=== PATIENT | male | born 1985 | race Caucasian/White ===

== ENCOUNTER 2018-04-22 12:46 | Emergency (ER) | payer SELFPAY ==
[2018-04-22 13:35] VITALS: BP 128/75
--- NOTE | 2018-04-22 14:35 | ER Document Report ---
ED Extremity Problem, Lower - General Chief Complaint: Ankle Pain Stated Complaint: HURT ANKLE Time Seen by Provider: 04/22/18 14:18 Mode of Arrival: Wheelchair Information source: Patient Notes: 33-year-old male presents to ED for complaint of pain in his right ankle. He states he has a previous fracture with surgery to this ankle and last week he stepped wrong on his ankle reinjuring the ankle. He states he has been trying to go without going to the doctor for this pain the swelling and bruising is better but the pain is still there. He states he needs to get his ankle evaluated. TRAVEL OUTSIDE OF THE [place] IN LAST 30 DAYS: No - HPI Patient complains to provider of: Injury, Pain Location: Ankle - Right Occurred: Last week Where: Outdoors Onset/Duration: Persistent Quality of pain: Sharp, Throbbing Severity: Moderate Pain Level: 3 Context: Twisted - Last week Recent injury: Yes Associated symptoms: Painful ambulation Exacerbated by: Hanging down, Movement, Walking Relieved by: Elevation, Ice, Rest - Related Data Allergies/Adverse Reactions: cephalexin monohydrate [From Keflex] Allergy (Verified 04/22/18 12:48) Past Medical History - General Information source: Patient - Social History Smoking Status: Never Smoker Cigarette use (# per day): No Chew tobacco use (# tins/day): No Smoking Education Provided: No Frequency of alcohol use: None Drug Abuse: None Lives with: Family Family History: None Patient has suicidal ideation: No Patient has homicidal ideation: No - Past Medical History Cardiac Medical History: Reports: None Pulmonary Medical History: Reports: None EENT Medical History: Reports: None Neurological Medical History: Reports: None Endocrine Medical History: Reports: None Renal/ Medical History: Reports: None Malignancy Medical History: Reports None GI Medical History: Reports: None Musculoskeletal Medical History: Reports Hx Musculoskeletal Trauma Skin Medical History: Reports None Psychiatric Medical History: Reports: Hx Anxiety, Hx Bipolar Disorder, Hx Depression Traumatic Medical History: Reports: Hx Fractures - Right ankle Infectious Medical History: Reports: None Past Surgical History: Reports: Hx Orthopedic Surgery - Right ankle - Immunizations Hx Diphtheria, Pertussis, Tetanus Vaccination: Yes Review of Systems - Review of Systems Constitutional: No symptoms reported EENT: No symptoms reported Cardiovascular: No symptoms reported Respiratory: No symptoms reported Gastrointestinal: No symptoms reported Genitourinary: No symptoms reported Male Genitourinary: No symptoms reported Musculoskeletal: Other - Right ankle pain no swelling mild bruising Skin: No symptoms reported Hematologic/Lymphatic: No symptoms reported Neurological/Psychological: No symptoms reported -: Yes All other systems reviewed and negative Physical Exam - Vital signs Vitals: Temp Pulse Resp BP Pulse Ox 97.5 F 61 18 128/75 H 98 04/22/18 13:33 04/22/18 13:33 04/22/18 13:33 04/22/18 13:33 04/22/18 13:33 Interpretation: Normal - General General appearance: Appears well, Alert - HEENT Head: Normocephalic, Atraumatic Eyes: Normal Pupils: PERRL - Respiratory Respiratory status: No respiratory distress Chest status: Nontender Breath sounds: Normal Chest palpation: Normal - Cardiovascular Rhythm: Regular Heart sounds: Normal auscultation Murmur: No - Abdominal Inspection: Normal Distension: No distension Bowel sounds: Normal Tenderness: Nontender Organomegaly: No organomegaly - Back Back: Normal, Nontender - Extremities General upper extremity: Normal inspection, Nontender, Normal color, Normal ROM , Normal temperature General lower extremity: Normal ROM, Normal temperature. No: Luis Alberto's sign Ankle: Tender, Ecchymosis, Limited ROM - Pain with range of motion pain with ambulation. No: Edema, Instability, Positive Moreau's test, Unable to bear weight - Neurological Neuro grossly intact: Yes Cognition: Normal Orientation: AAOx4 [place] Coma Scale Eye Opening: Spontaneous Dorcas Coma Scale Verbal: Oriented Dorcas Coma Scale Motor: Obeys Commands [place] Coma Scale Total: 15 Speech: Normal Motor strength normal: LUE, RUE, LLE, RLE Sensory: Normal - Psychological Associated symptoms: Normal affect, Normal mood - Skin Skin Temperature: Warm Skin Moisture: Dry Skin Color: Normal Course - Re-evaluation Re-evalutation: 04/22/18 20:22 X-rays were discussed with patient and patient was discharged home with instructions to follow-up with orthopedics. There was some changes in the screws to his previous surgery. He will need to follow-up with orthopedics. Patient is instructed to use ibuprofen elevation and ice for his discomfort. - Vital Signs Vital signs: Temp Pulse Resp BP Pulse Ox 97.5 F 61 18 128/75 H 98 04/22/18 13:33 04/22/18 13:33 04/22/18 13:33 04/22/18 13:33 04/22/18 13:33 - Diagnostic Test Radiology reviewed: Image reviewed, Reports reviewed Procedures - Immobilization Right Ankle Time completed: 15:06 Immobilizer type: Ankle stirrup Performed by: PCT Post-Proc Neuro Vasc Exam: Normal Alignment checked and good: Yes Discharge - Discharge Clinical Impression: Right ankle pain Qualifiers: Chronicity: unspecified Qualified Code(s): M25.571 - Pain in right ankle and joints of right foot Condition: Stable Disposition: HOME, SELF-CARE Additional Instructions: He was seen today for right ankle pain. There are no new fractures noted on the ankle. You have been placed in a stirrup splint to support the ankle and to you can follow-up with orthopedics. This ankle has been previously broken and does have plates and screws noted on the x-ray. ICE & ELEVATION: Apply ice packs frequently against the painful area. Many different schedules are recommended, such as "20 minutes on, 20 minutes off" or "one hour ice, two hours rest." If you need to work, you may need to go longer between ice treatments. You should plan to have the area ice packed AT LEAST one- fourth of the time. The ice should be applied over the wrap, tape, or splint, or over a layer of cloth -- not directly against the skin. Some ice bags have a built-in cloth and can be put directly on the skin. Your injured part should be elevated as much as possible over the next 48 hours. Try to keep the injury above the level of the heart. Avoid use of the injured area. Elevation and rest will decrease the swelling. USE OF [id number] IBUPROFEN: Ibuprofen (Advil, Nuprin, Medipren, Motrin IB) is a medication for fever and pain control. In addition, it has anti- inflammatory effects which may be beneficial, especially in the treatment of injuries. It's best to take ibuprofen with food. Persons with ulcer disease or allergy to aspirin should notify their physician of this before taking ibuprofen. Ibuprofen can be given every four to six hours, for a total of four doses daily. Age Pain or fever dose Antiinflammatory dose 6-8 yr 200 mg (1 tab) 200 mg (1 tab) 9-11 yr 200 mg (1 tab) 200-400 mg (1-2 tab) 11-14 yr 200-400 mg (1-2 tab) 400 mg (2 tab) 15-adult 400 mg (2 tab) 600 mg (3 tab) FOLLOW-UP CARE: If you have been referred to a physician for follow-up care, call the physician s office for an appointment as you were instructed or within the next two days. If you experience worsening or a significant change in your symptoms, notify the physician immediately or return to the Emergency Department at any time for re-evaluation. Forms: Elevated Blood Pressure, Smoking Cessation Education, Return to Work Referrals: LEONARDO CHACON MD [ACTIVE STAFF] - Follow up as needed
--- NOTE | 2018-04-22 15:05 | RADIOLOGY REPORT (SQ) ---
EXAM DESCRIPTION: ANKLE RIGHT COMPLETE COMPLETED DATE/TIME: 04/22/2018 2:39 pm REASON FOR STUDY: re injured previous fracture pain in the anterior ankle COMPARISON: None. NUMBER OF VIEWS: Three views. TECHNIQUE: AP, lateral, and oblique radiographic images acquired of the right ankle. LIMITATIONS: None. FINDINGS: MINERALIZATION: Osteopenic BONES: There are old healed medial and lateral malleolar fractures with a medial malleolar lag screw, and lateral malleolar fixation plate with multiple screws. The most inferior of the lateral malleol ar screws protrudes beyond the plate by 4 mm. No acute fracture. No malalignment on the ankle mortise view JOINTS: No gross tibiotalar joint effusion. SOFT TISSUES: Anterior soft tissue swelling in the region of the tibialis anterior tendon. Correlate clinically. OTHER: No other significant finding. IMPRESSION: Anterior ankle soft tissue swelling in the region of the tibialis anterior tendon. No acute fracture or malalignment. Old bimalleolar hardware. Distal fibular screw telescoping out of the plate as above. TECHNICAL DOCUMENTATION: JOB ID: [id number] [employer]- All Rights Reserved Reading location - IP/workstation name: [email or web address]
== END 2018-04-22 15:20 | disposition home or self-care (01) ==
LOC: ER 12:46
DX: M25.571 Pain in right ankle and joints of right foot (principal)
CPT/HCPCS: 99283; 73610; L1902